=== PATIENT | female | born 1975 | race Caucasian/White ===

== ENCOUNTER 2018-12-01 23:24 | Emergency (ER) | payer MEDICAID ==
[~2018-12-01] VITALS: Ht 157.5 cm; Wt 65.9 kg
[2018-12-01 23:27] VITALS: Ht 157.5 cm; Wt 65.9 kg
[2018-12-02] MEDS ORDERED: SOD CHLORIDE 0.9% 1,000 ML IV STA (00:15)
[2018-12-02] MEDS ORDERED: ONDANSETRON 4 MG INJ IV STA (01:25)
--- NOTE | 2018-12-02 02:31 | ERD ---
ER Documentation Chief Complaint Chief Complaint DIZZINESS WITH ANXIETY; STATES FELT DIZZY AFTER TAKING MEDS; SEE NOTES HPI This is a 43-year-old female with a history of very large uterine fibroids who is having 10 days of light watery vaginal bleeding with no pain. She is already taking a drug Lystera but it is not helping as much. She is going to have her uterus removed and she is waiting for approval by the insurance. Is Jose been 2 weeks and she still waiting. She does feel a bit dizzy and weak and she has a history of anemia and is Jose getting iron. She is very tried the control pill without success. No syncope no blood clots ROS All systems reviewed and are negative except as per history of present illness. Allergies Allergies: Coded Allergies: No Known Allergy (Unverified , 12/02/18) FmHx Family History: No coronary disease Physical Exam Vitals Vital Signs Date Temp Pulse Resp B/P (MAP) Pulse Ox O2 O2 Flow FiO2 Time Delivery Rate 12/01/18 98.7 63 19 135/71 100 23:27 (92) Physical Exam Const: Well-developed, well-nourished Head: Atraumatic, normocephalic Eyes: Normal Conjunctiva, PERRLA, EOMI, normal sclera, no nystagmus ENT: Normal External Ears, Nose and Mouth, moist mucus membranes. Neck: Full range of motion. No meningismus, no lymphadenopathy. Resp: Clear to auscultation bilaterally, no wheezing, rhonchi, rales Cardio: Regular rate and rhythm, no murmurs, S1 S2 present Abd: Soft, non tender x 4, non distended, large palpable uterine fibroids. Normal bowel sounds, no guarding or rebound, no pulsitile abdominal masses or bruits Skin: No petechiae or rashes, no ecchymosis , no maculopapular rash Back: No midline or flank tenderness Ext: No cyanosis, or edema, FROM x 4, normal inspection, neurovascularly intact x 4 Neur: Awake and alert, STR 5/5 x 4, sensation intact x 4, no focal findings, cerebellum intact Psych: Normal Mood and Affect Result Diagram: 12/02/18 0028 12/02/18 0028 Results 24 hrs Laboratory Tests Test 12/02/18 00:28 12/02/18 00:51 White Blood Count 8.7 10^3/ul Red Blood Count 3.93 10^6/ul Hemoglobin 8.3 g/dl Hematocrit 28.9 % Mean Corpuscular Volume 73.5 fl Mean Corpuscular Hemoglobin 21.1 pg Mean Corpuscular Hemoglobin Concent 28.7 g/dl Red Cell Distribution Width 19.4 % Platelet Count 467 10^3/UL Mean Platelet Volume 9.5 fl Immature Granulocytes % 0.200 % Neutrophils % 56.6 % Lymphocytes % 31.7 % Monocytes % 9.4 % Eosinophils % 1.5 % Basophils % 0.6 % Nucleated Red Blood Cells % 0.0 /100WBC Immature Granulocytes # 0.020 10^3/ul Neutrophils # 4.9 10^3/ul Lymphocytes # 2.8 10^3/ul Monocytes # 0.8 10^3/ul Eosinophils # 0.1 10^3/ul Basophils # 0.1 10^3/ul Nucleated Red Blood Cells # 0.0 10^3/ul Sodium Level 142 mmol/L Potassium Level 4.0 mmol/L Chloride Level 104 mmol/L Carbon Dioxide Level 27 mmol/L Anion Gap 11 Blood Urea Nitrogen 9 mg/dl Creatinine 0.65 mg/dl Est Glomerular Filtrat Rate mL/min > 60 mL/min Glucose Level 103 mg/dl Calcium Level 9.7 mg/dl Total Bilirubin 0.2 mg/dl Direct Bilirubin 0.00 mg/dl Indirect Bilirubin 0.2 mg/dl Aspartate Amino Transf (AST/SGOT) 29 IU/L Alanine Aminotransferase (ALT/SGPT) 22 IU/L Alkaline Phosphatase 71 IU/L Total Protein 7.9 g/dl Albumin 4.9 g/dl Globulin 3.00 g/dl Albumin/Globulin Ratio 1.63 POC Beta HCG, Qualitative NEGATIVE Current Medications Medications Dose Sig/Dominique Start Time Status Last (Trade) Ordered Route PRN Stop Time Admin Dose Reason Admin Sodium 1,000 ml @ Q1H STAT 12/02/18 DC 12/02/18 Chloride 1,000 mls/hr IV 00:15 12/02/18 00:36 01:14 Ondansetron 4 mg ONCE STAT 12/02/18 DC 12/02/18 HCl (Zofran IV 01:25 12/02/18 01:40 Inj) 01:36 Procedures/MDM Spoke with VENDING MACHINE REPAIRER on-call/laborist who said at this point the only thing we can give his Lupron however the hospital does not have Lupron. I called the pharmacy to verify this. The patient has some anemia with hemoglobin of 8.3 but is not critical and needs a blood transfusion at this point. She is feeling better. I will discharge home and have her call her OB GEN tomorrow morning to go into the office for a Lupron injection as this is her best bet to stop the bleeding at this time Departure Diagnosis: Primary Impression: Vaginal bleeding Additional Impressions: Uterine fibroid Uterine leiomyoma location: unspecified location Qualified Codes: D25.9 - Leiomyoma of uterus, unspecified Anemia Anemia type: unspecified type Qualified Codes: D64.9 - Anemia, unspecified Condition: Stable TAMAR VO DO Dec 02, 2018 02:31
[2018-12-02 02:55] VITALS: BP 107/80; PULSE 60; RESP 18
== END 2018-12-02 03:00 | disposition home or self-care (01) ==
LOC: E/R 23:24
DX: D25.9 Leiomyoma of uterus, unspecified (principal); D64.9 Anemia, unspecified
CPT/HCPCS: 36415; 80053; 81025; 85025; 96361; 96374; J2405; J7030; Z7502